=== PATIENT | female | born 2000 | race Caucasian/White ===

== ENCOUNTER 2019-04-19 12:25 | Emergency (ER) | payer OTHER ==
[2019-04-19 13:22] VITALS: BP 136/85
--- NOTE | 2019-04-19 13:43 | UC ---
Lower Extremity/Ankle HPI - HPI Summary HPI Summary: Has had "cracking" in the right ankle, but that stopped on Saturday, 6 days ago, and has had progressively worsening pain. Mom notes change in the gait since fall last year. Pt denies pain in the right knee. - History of Current Complaint Chief Complaint: UCLowerExtremity Stated Complaint: RIGHT FOOT/ ANKLE INJURY Time Seen by Provider: 04/19/19 13:25 Hx Obtained From: Patient Hx Last Menstrual Period: 02/2019 ?: No Onset/Duration: Gradual Onset, Lasting Days - 6, Worse Since - this morning. Severity Initially: Mild Severity Currently: Moderate Pain Intensity: 7 Aggravating Factor(s): Standing, Ambulation Alleviating Factor(s): Rest, Elevation Able to Bear Weight: No - Using crutches - Allergies/Home Medications Allergies/Adverse Reactions: Allergies Allergy/AdvReac Type Severity Reaction Status Date / Time Penicillins Allergy See Comment Verified 04/19/19 13:13 Home Medications: Home Medications Ibuprofen TAB* [Motrin TAB* 600 MG] 600 mg PO Q6H PRN 04/19/19 [History Confirmed 04/19/19] PMH/Surg Hx/FS Hx/Imm Hx Previously Healthy: Yes - Surgical History Surgical History: Yes Surgery Procedure, Year, and Place: tonsillectomy - Family History Known Family History: Positive: Hypertension, Diabetes - Social History Occupation: Employed Full-time Lives: With Family Alcohol Use: None Substance Use Type: None Smoking Status (MU): Never Smoked Tobacco Review of Systems All Other Systems Reviewed And Are Negative: Yes Musculoskeletal: Positive: Arthralgia - right foot and ankle. Physical Exam Triage Information Reviewed: Yes Appearance: Well-Appearing, Pain Distress, Obese Vital Signs: Initial Vital Signs Temp 98.9 F 04/19/19 13:15 Pulse 90 04/19/19 13:15 Resp 16 04/19/19 13:15 BP 136/85 04/19/19 13:15 Pulse Ox 98 04/19/19 13:15 Vital Signs Reviewed: Yes Eyes: Positive: Conjunctiva Clear Neck exam: Normal Respiratory Exam: Normal Cardiovascular Exam: Normal Musculoskeletal: Positive: ROM Limited @ - right foot and ankle, Other: - Tender over the anterior lateral malleolus, peroneal tendons and 5th metatarsal base. Neurological Exam: Normal Psychological Exam: Normal Skin Exam: Normal Diagnostics - Radiology No standard instances Radiology Interpretation Completed By: Radiologist Summary of Radiographic Findings: No fracture Lower Extremity Course/Dx - Differential Dx/Diagnosis Differential Diagnosis/HQI/PQRI: Fracture (Closed), Sprain, Strain, Tendonitis, Tenosynovitis Provider Diagnosis: Tendonitis of ankle, right Discharge ED - Sign-Out/Discharge Documenting (check all that apply): Patient Departure All imaging exams completed and their final reports reviewed: Yes - Discharge Plan Condition: Stable Disposition: HOME Patient Education Materials: Tendinitis (ED) Referrals: No Primary Care Phys,NOPCP [Primary Care Provider] - Additional Instructions: Please set up appointment for physical therapy - Billing Disposition and Condition Condition: STABLE Disposition: Home
== END 2019-04-19 14:21 | disposition home or self-care (01) ==
LOC: UCCORT 12:25
DX: M77.51 Other enthesopathy of right foot and ankle (principal); Z88.0 Allergy status to penicillin
CPT/HCPCS: 99201; G0463